=== PATIENT | female | born 1960 | race Caucasian/White ===

== ENCOUNTER → 2022-04-28 13:35 | Outpatient (CLI) | payer SELFPAY ==
--- NOTE | 2022-04-28 | DI.RAD.S_ITS ---
PROCEDURE: XR LUMBAR SPINE 2-3V INDICATIONS: LOW BACK PAIN TECHNIQUE: 3 views of the lumbar spine were acquired. COMPARISON: None. FINDINGS: Bones: 5 [id number] vertebrae are present. There is normal bony alignment. No vertebral body compression fractures. No suspicious bony lesions. Degenerative changes including intervertebral disc space narrowing and facet sclerosis are present throughout the lumbar spine. Soft tissues: Overlying bowel gas pattern is normal. No suspicious soft tissue calcifications. IMPRESSION: Degenerative change. No compression deformities. Dictated by: Giselle Hoffman M.D. on 04/28/2022 at 15:22 Approved by: Giselle Hoffman M.D. on 04/28/2022 at 15:22
== END ==
PROVIDERS: PCP Family Medicine; Referring Provider Family Medicine; Visit Provider Family Medicine
DX: M47.816 Spondylosis without myelopathy or radiculopathy, lumbar region (principal); M54.50 Low back pain, unspecified; G89.29 Other chronic pain
CPT/HCPCS: 72100